=== PATIENT | female | born 1990 | race Caucasian/White ===

== ENCOUNTER 2018-02-04 11:14 | Emergency (ER) | payer OTHER, MEDICAID ==
--- OUTSIDE RECORDS SUMMARY | 2018-02-04 11:31 | XMS REPORT ---
:1990 Author Organization [facility] Address [address] [place] [address] Care Team Providers Name Role Phone Juan Aranda Unavailable Unavailable PROBLEMS Unknown Problems ALLERGIES No Information ENCOUNTERS Encounter Location Date Diagnosis [facility] [address] [place], [place], [address] [facility] [address] [place], [place], [address] Formerly [facility] [address] [place] [address] Nov, [facility] [address] [place], [address] IMMUNIZATIONS No Known Immunizations SOCIAL HISTORY Never Assessed REASON FOR REFERRAL FUNCTIONAL STATUS PLAN OF CARE VITAL SIGNS MEDICATIONS Unknown Medications PROCEDURES No Known procedures RESULTS No Results REASON FOR VISIT Acute Triage Dental Insurance Providers [facility] Health Member Patient Patient Patient Patient Patient Subscriber Subscriber Subscriber Group Insurance Plan Plan Plan Plan ID Relationship Address Phone Name Date of ID Name Date of No Type Insurance Insurance Insurance Coverage to Subscriber Address Phone Name Dates [facility] [phone] [facility] self [place] [id number] [facility] [address] Medicaid [id number] [phone] Medicaid self [place] [id number] [facility] [address]
--- OUTSIDE RECORDS SUMMARY | 2018-02-04 11:31 | XMS REPORT ---
:1990 Author Organization [facility] Care Team Providers Name Role Phone Saul Parnell Unavailable Unavailable PROBLEMS Unknown Problems ALLERGIES No Information ENCOUNTERS Encounter Location Date Diagnosis [id number] [place], [place], [address] [facility] [address] [place], [address] [facility] [address] [place] [address] Nov, [facility] [address] [place], [address] IMMUNIZATIONS No Known Immunizations SOCIAL HISTORY Never Assessed REASON FOR REFERRAL FUNCTIONAL STATUS PLAN OF CARE VITAL SIGNS MEDICATIONS Unknown Medications PROCEDURES Procedure Date Ordered Result Body Site LTD ORAL EVALUATION-PROBLEM FOCUS November 11, 2017 INTRAORL-PERIAPICAL 1 FILM [id number] November 11, 2017 RESULTS No Results REASON FOR VISIT Insurance Providers [facility] Health Member Patient Patient Patient Patient Patient Subscriber Subscriber Subscriber Group Insurance Plan Plan Plan Plan ID Relationship Address Phone Name Date of ID Name Date of No Type Insurance Insurance Insurance Coverage to Subscriber Address Phone Name Dates Medicaid [id number] Medicaid self [place] [id number] [facility] [address] [address] [address] [facility] [phone] [facility] self [place] [id number] [facility] [address]
--- NOTE | 2018-02-04 11:40 | UC ---
Shoulder Pain HPI - HPI Summary HPI Summary: 27 yo female presents with right shoulder pain. She tells me that about a month ago she woke up with mild right shoulder pain. She does not remember injuring her shoulder. She took tylenol and ibuprofen and did not use the shoulder/arm much for a few days. Her pain increased and her ROM decreased. Since that time her symptoms have gotten worse to where she cannot lift her shoulder/arm to 90deg. Tylenol and ibuprofen are no longer helping as much as they were. Denies injury, fever, chills, numbness, tingling, radiation of pain. - History of Current Complaint Chief Complaint: UCUpperExtremity Stated Complaint: SHOULDER PAIN Time Seen by Provider: 02/04/18 11:40 Hx Obtained From: Patient Hx Last Menstrual Period: 01/24/18 Onset/Duration: Sudden Onset Timing: Constant Severity Initially: Mild Severity Currently: Moderate Pain Intensity: 5 Pain Scale Used: 0-10 Numeric Character: Sharp, Aching, Stiffness Aggravating Factor(s): Movement - Allergies/Home Medications Allergies/Adverse Reactions: Allergies Allergy/AdvReac Type Severity Reaction Status Date / Time doxycycline Allergy Hives Verified 02/04/18 11:38 Home Medications: Home Medications Ibuprofen 400 mg PO 02/04/18 [History] PMH/Surg Hx/FS Hx/Imm Hx - Additional Past Medical History Additional PMH: None - Surgical History Surgical History: Yes Surgery Procedure, Year, and Place: wisdom teeth extraction - Family History Known Family History: Positive: None - Social History Occupation: Employed Full-time Lives: With Family Alcohol Use: Occasionally Substance Use Type: None Smoking Status (MU): Former Smoker Review of Systems Constitutional: Negative Skin: Negative Respiratory: Negative Cardiovascular: Negative Neurovascular: Negative Musculoskeletal: Other: - Right shoulder pain Neurological: Negative Psychological: Negative All Other Systems Reviewed And Are Negative: Yes Physical Exam - Summary Physical Exam Summary: GENERAL: NAD. WDWN. No pain distress. SKIN: No rashes, sores, lesions, or open wounds. CHEST: No accessory muscle use. Breathing comfortably and in no distress. CV: Pulses intact radial and ulnar. Cap refill <2seconds MSK: RIGHT SHOULDER: Mild TTP anterior aspect. Active flexion to 45deg before pain stops her. Passive flexion to ~120deg before pain. Intact adduction and abduction. No edema or obvious bony deformities. Positive caballero-issac, neer , and empty can. NEURO: Alert. Sensations intact C4-T1 PSYCH: Age appropriate behavior. Triage Information Reviewed: Yes Vital Signs: Initial Vital Signs Temp 98.4 F 02/04/18 11:33 Pulse 75 02/04/18 11:33 Resp 18 02/04/18 11:33 BP 113/62 02/04/18 11:33 Pulse Ox 100 02/04/18 11:33 Vital Signs Reviewed: Yes Shoulder Course/Dx - Course Course Of Treatment: XR: IMPRESSION: #. Negative radiographic exam of the RIGHT shoulder. I suspect the pt initially had a shoulder strain that may be progressing to an adhesive capsulitis due to her infrequent use/exercise of the extremity. Will refer her to PT and have her f/u with Orthopedics for further eval. - Differential Dx/Diagnosis Provider Diagnoses: Right shoulder pain Discharge - Sign-Out/Discharge Documenting (check all that apply): Patient Departure All imaging exams completed and their final reports reviewed: Yes - Discharge Plan Condition: Stable Disposition: HOME Patient Education Materials: Adhesive Capsulitis (ED), Exercises for Shoulder Flexion and Extension (ED), Exercises for Internal and External Shoulder Rotation (ED) Referrals: No Primary Care Phys,NOPCP [Primary Care Provider] - Kareem Rosario MD [Medical Doctor] - As Soon As Possible Additional Instructions: If you develop a fever, shortness of breath, chest pain, new or worsening symptoms - please call your PCP or go to the ED. 1) Apply heat to your shoulder and may continue to take ibuprofen if needed to reduce pain 2) Practice stretching exercises 3) Please schedule a follow up with Physical Therapy and with Orthopedics for further evaluation and treatment - Billing Disposition and Condition Condition: STABLE Disposition: Home
--- NOTE | 2018-02-04 12:29 | RAD ---
Indication: Chronic RIGHT shoulder pain. Comparison: No relevant prior exams available on the [facility] PACS for comparison. Technique: Internal rotation AP, external rotation Grashey, scapular Y, axillary views RIGHT shoulder Report: Negative for fracture. Normal acromioclavicular and glenohumeral joint alignment. Preserved joint spaces. Negative for calcific tendinopathy or abnormal soft tissue contour. IMPRESSION: #. Negative radiographic exam of the RIGHT shoulder.
== END 2018-02-04 12:50 | disposition home or self-care (01) ==
LOC: UCEAST 11:14
DX: M25.511 Pain in right shoulder (principal); Z88.1 Allergy status to other antibiotic agents; Z87.891 Personal history of nicotine dependence
CPT/HCPCS: 99201; G0463